=== PATIENT | female | born 1960 | race Caucasian/White ===

== ENCOUNTER 2017-06-18 06:15 | Day surgery (SDC) | payer MEDICAID, OTHER ==
[~2017-06-18] VITALS: Ht 170.2 cm; Wt 102.6 kg
[~2017-06-18 06:15] MED LIST: NITR0.4T28
[2017-06-18 06:52] VITALS: Ht 170.2 cm; Wt 102.6 kg
[2017-06-18 07:17] VITALS: BP 116/59; RESP 14
[2017-06-18] MEDS ORDERED: PROPOFOL 20 ML ONE (07:19)
[2017-06-18 08:09] VITALS: BP 143/72; PULSE 60; RESP 15
[2017-06-18] MEDS ORDERED: ONDANSETRON 4 MG INJ ONE (08:17)
--- NOTE | 2017-06-18 08:19 | OPPN ---
Date/Time of Note Date/Time of Note DATE: 06/18/17 TIME: 08:16 Operative Report Preoperative Diagnosis Screening Postoperative Diagnosis Diverticulosis Internal hemorrhoids Operation/Procedure Performed Colonoscopy Surgeon see signature line starch treating assistant None Anesthesia: MAC Estimated blood loss: none Transfusion Required none Specimen None Grafts/Implants none Complications none GAEL HEALY MD Jun 18, 2017 08:19
--- NOTE | 2017-06-18 10:33 | GILP ---
DATE OF PROCEDURE: 06/18/2017 PROCEDURE PERFORMED: Colonoscopy. PREOPERATIVE DIAGNOSIS: Screening colonoscopy. POSTOPERATIVE DIAGNOSES: 1. Colonoscopy all the way to the cecum. 2. Poor prep making the exam somewhat suboptimal. 3. Diverticulosis of the colon. 4. Internal hemorrhoids. 5. No gross neoplasm was identified. PROCEDURE PERFORMED: Leoncio Laguna MD INDICATION: Ms. Leydi Caldera is a 56-year-old female patient who was scheduled for screening colonoscopy. The procedure and possible complications were well explained to the patient. The patient understood and consented to the procedure. DESCRIPTION OF PROCEDURE: Under the influence of anesthesia, the colonoscope was carefully introduced the rectum. Under direct vision, it was advanced all the way to the cecum. FINDINGS: The patient had poor prep making the exam somewhat suboptimal. She was noted to have diverticulosis of the colon and internal hemorrhoids. No gross neoplasm was identified. She tolerated the procedure very well. There was no complication from the procedure. At the end of procedure, she was awake with stable vital signs and she was discharged home in the care of her family. IMPRESSION: Please see postop diagnoses. PLAN: 1. High fiber diet. 2. Because of the poor prep and suboptimal nature of the examination, would recommend repeat colonoscopy with better preparation in 2-3 years. Dictated By: MD LINNETTE Brown/emily/kayla /Document#: [id number]
== END 2017-06-18 09:18 | disposition home or self-care (01) ==
LOC: GIL 06:15
PROVIDERS: ATTEND Internal Medicine Gastroenterology
DX: Z12.11 Encounter for screening for malignant neoplasm of colon (principal); K57.30 Diverticulosis of large intestine without perforation or abscess without bleeding; K64.8 Other hemorrhoids; E11.9 Type 2 diabetes mellitus without complications; E78.5 Hyperlipidemia, unspecified
CPT/HCPCS: 45378; 82962; J2405; Z7610